=== PATIENT | female | born 1990 ===

== ENCOUNTER 2018-08-25 20:16 | Emergency (ER) | payer OTHER ==
[2018-08-25 20:49] LABS: APPEARANCE,URINE Clear; BILIRUBIN,URINE NEGATIVE (NEGATIVE); COLOR,URINE Yellow; GLUCOSE, URINE (UA) NEGATIVE (NEGATIVE); KETONES,URINE TRACE (NEGATIVE); LEUKOCYTE ESTERASE ,URINE NEGATIVE (NEGATIVE); NITRATE,URINE NEGATIVE (NEGATIVE); OCCULT BLOOD,URINE 1+ (NEG-TRACE); PH,URINE 6.5; UROBILINOGEN,URINE 0.2 (0.2-1.0 EU)
[2018-08-25 20:50] VITALS: RESP 18
[2018-08-25 21:00] LABS: BACTERIA 2+ (< 1+); CRYSTALS NEGATIVE (0-3 AVE/HPF)
[2018-08-25] MEDS ORDERED: KETOROLAC TROMETHAMINE 30 MG/ML SOL IV ONE (21:05)
[2018-08-25] MEDS ORDERED: SODIUM CHLORIDE 0.9% FLUSH 10 ML SOL IV PRN (21:05)
[2018-08-25] MEDS ORDERED: KETOROLAC TROMETHAMINE 30 MG/ML SOL ONE (21:06)
[2018-08-25] MEDS ORDERED: SODIUM CHLORIDE 0.9% 1000ML 1,000 ML IV ONE (21:08)
[2018-08-25 22:43] VITALS: TEMP 97
[2018-08-25 22:44] VITALS: O2SAT 100
[2018-08-25 22:46] VITALS: BP 110/86; PULSE 86
== END 2018-08-25 22:40 | disposition home or self-care (01) ==
LOC: ED 20:16
DX: M54.5 Low back pain (principal)
CPT/HCPCS: 74176; 81001; 87077; 87088; 87186; 96365; 96374; 99283; 99285; J1885